=== PATIENT | female | born 1990 | race Caucasian/White ===

== ENCOUNTER 2020-10-19 05:36 | Inpatient (IN) | payer OTHER ==
[2020-10-19] MEDS ORDERED: Calcium Carbonate 500 MG Tab.Chew PO PRN (07:58)
[2020-10-19] MEDS ORDERED: fentaNYL 100 MCG/2 ML SDV IVPUSH PRN (07:58)
[2020-10-19] MEDS ORDERED: Sodium Chloride 0.9% 10 ML Syringe FLUSH PRN (07:58)
[2020-10-19] MEDS ORDERED: Ondansetron 4 MG/2 ML SDV IV PRN (07:58)
[2020-10-19] MEDS ORDERED: Lactated Ringers 1,000 ML IV SCH (08:00)
[2020-10-19] MEDS ORDERED: Clindamycin Phosphate 900 MG/6 ML SDV IV SCH (08:00)
[2020-10-19] MEDS ORDERED: Misoprostol 50 MCG (1/2 of 100 MCG) Tab VAG ONE (08:15)
[2020-10-19] MEDS: Clindamycin Phosphate 900 MG in Sodium Chloride 0.9% 100 ML IV SCH ×2 (08:41→16:29)
--- NOTE | 2020-10-19 10:11 | PCM.LDHP ---
L&D History of Present Illness - General Date of Service: 10/19/20 Admit Problem/Dx: Patient Status Order with Admit Dx/Problem 10/19/20 07:58 Patient Status [ADT] Routine Admission Diagnosis/Problem Admission Diagnosis/Problem Term Source of Information: Patient History Limitations: Reports: No Limitations - History of Present Illness Introduction:: 10/19/20 30 yo is here at 39 2/7 weeks for elective induction of labor. Reasons for choosing elective induction include history of hemorrhage, preeclampsia, and some extensive 2nd degree tearing last baby. Baby is also measuring in the 98% for weight. She has overall had an uncomplicated . She is rubella immune, A pos blood type, HIV/RPR/HepB & C all non reactive. She is GBS positive and allergic to amoxicillin so is receiving clindamycin. She has had some mild contractions over the last few days. Last baby was 8 lb 7 oz, vaginal . Timing/Duration: Reports: intermittent Severity: Mild Improves with: Reports: None Worsens with: Reports: None Associated Symptoms: Denies: vaginal bleeding, vaginal fluid - Related Data Allergies/Adverse Reactions: Allergies Allergy/AdvReac Type Severity Reaction Status Date / Time amoxicillin Allergy Rash Verified 08/24/20 16:24 benzoyl peroxide Allergy Facial Verified 08/24/20 16:24 Swelling pollen extracts Allergy Sneezing Verified 08/24/20 16:24 Sulfa (Sulfonamide Allergy Rash Verified 08/24/20 16:24 Antibiotics) Home Medications: Home Meds Aspirin 1 tab PO DAILY 08/24/20 [History] Cetirizine HCl [Zyrtec] 1 tab PO DAILY 08/24/20 [History] Docosahexaenoic Acid [DHA] 1 tab PO DAILY 08/24/20 [History] Pantoprazole Sodium [Protonix] 20 mg PO DAILY 08/24/20 [History] No122/Iron/Folic Acid [ Multi Tablet] 1 tab PO DAILY 08/24/20 [History] Past Medical History Respiratory History: Reports: Asthma Gastrointestinal History: Reports: Chronic Constipation 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 (Approximate): - Past Surgical History HEENT Surgical History: Reports: Naso-Sinus Surgery GI Surgical History: Reports: None Musculoskeletal Surgical History: Reports: Other (See Below) Other Musculoskeletal Surgeries/Procedures:: 2006 L acl REPAIR Social & Family History - Family History Family Medical History: No Pertinent Family History - Tobacco Use Tobacco Use Status *Q: Never Tobacco User Second Hand Smoke Exposure: No - Caffeine Use Caffeine Use: Reports: None - Recreational Drug Use Recreational Drug Use: No H&P Review of Systems - Review of Systems: Review Of Systems: See Below General: Reports: No Symptoms HEENT: Reports: No Symptoms Pulmonary: Reports: No Symptoms Cardiovascular: Reports: No Symptoms Gastrointestinal: Reports: No Symptoms Genitourinary: Reports: Discharge Musculoskeletal: Reports: No Symptoms Skin: Reports: No Symptoms Psychiatric: Reports: No Symptoms Neurological: Reports: No Symptoms Hematologic/Lymphatic: Reports: No Symptoms Immunologic: Reports: No Symptoms L&D Exam - Exam Exam: See Below - Vital Signs Vital Signs: Last Vital Signs Temp 37.0 C 10/19/20 08:35 Pulse 76 10/19/20 09:06 Resp BP 109/65 10/19/20 09:06 Pulse Ox 96 10/19/20 08:48 Weight: 99.79 kg - OB Specific Contraction Duration (sec): 60-90 Contraction Frequency (min): 2.5-3.5 Contraction Intensity: Mild Movement: Active Heart Tones: Present Heart Tones per Min: 130 Heart Rate (FHR) Variability: Moderate (6-25 bpm) Presentation: Vertex Estimated Weight: 8.5 lbs - Diamond Score Diamond Score Cervix Position: Midposition Diamond Score Consistency: Soft Diamond Score Effacement: 31-50% Diamond Score Dilation: 1-2 cm Diamond Score Infant's Station: -3 Diamond Score Total: 5 - Exam General: Alert, Oriented HEENT: PERRLA, Conjunctiva Clear, EOMI, Hearing Intact, Nares Patent, Normal Nasal Septum, Pupils Equal, Pupils Reactive Neck: Supple, Trachea Midline Lungs: Clear to Auscultation, Normal Respiratory Effort Cardiovascular: Regular Rate, Regular Rhythm GI/Abdominal Exam: Normal Bowel Sounds, Soft, Non-Tender, No Mass, Pelvis Stable Rectal Exam: Normal Exam Genitourinary: Normal external exam, Normal bimanual exam, Cervical dilitation. No: Vaginal bleeding Back Exam: Normal Inspection, Full Range of Motion Extremities: Normal Inspection, Normal Range of Motion, Non-Tender, No Pedal Edema, Normal Capillary Refill Skin: Warm, Dry, Intact Neurological: Cranial Nerves Intact, Reflexes Equal Bilateral Psychiatric: Alert, Normal Affect, Normal Mood - Patient Data Lab Results Last 24 hrs: Laboratory Results - last 24 hr 10/19/20 10/19/20 10/19/20 Range/Units 07:27 07:27 07:40 WBC 9.2 (4.5-11.0) K/uL RBC 3.98 (3.30-5.50) M/uL Hgb 12.6 (12.0-15.0) g/dL Hct 37.6 (36.0-48.0) % MCV 95 (80-98) fL MCH 32 H (27-31) pg MCHC 34 (32-36) % Plt Count 206 (150-400) K/uL Neut % (Auto) 73.4 H (36-66) % Lymph % (Auto) 16.7 L (24-44) % [place] % (Auto) 7.7 H (2-6) % Eos % (Auto) 1.8 L (2-4) % Baso % (Auto) 0.4 (0-1) % Urine Color Yellow (YELLOW) Urine Appearance Clear (CLEAR) Urine pH 6.5 (5.0-8.0) Ur Specific [place] 1.025 (1.008-1.030) Urine Protein Negative (NEGATIVE) mg/dL Urine Glucose (UA) Negative (NEGATIVE) mg/dL Urine Ketones Trace H (NEGATIVE) mg/dL Urine Occult Blood Trace-intact H (NEGATIVE) Urine Nitrite Negative (NEGATIVE) Urine Bilirubin Negative (NEGATIVE) Urine Urobilinogen 1.0 (0.2-1.0) EU/dL Ur Leukocyte Esterase Trace H (NEGATIVE) Urine RBC 0-5 (0-5) Urine WBC 0-5 (0-5) Ur Epithelial Cells Moderate Amorphous Sediment Not seen Urine Bacteria Rare Urine Mucus Moderate Urine Opiates Screen Negative (NEGATIVE) Ur Oxycodone Screen Negative (NEGATIVE) Urine Methadone Screen Negative (NEGATIVE) Ur Propoxyphene Screen Negative (NEGATIVE) Ur Barbiturates Screen Negative (NEGATIVE) Ur Tricyclics Screen Negative (NEGATIVE) Ur Phencyclidine Scrn Negative (NEGATIVE) Ur Amphetamine Screen Negative (NEGATIVE) U Methamphetamines Scrn Negative (NEGATIVE) Urine MDMA Screen Negative (NEGATIVE) U Benzodiazepines Scrn Negative (NEGATIVE) U Cocaine Metab Screen Negative (NEGATIVE) U Marijuana (THC) Screen Negative (NEGATIVE) Result Diagrams: 10/19/20 07:40 Matt Results Last 24 hrs: Microbiology 10/19/20 07:56 DAVID Preparation - Final Vagina 10/19/20 07:57 Wet Prep - Final Vagina - Problem List (1) Term SNOMED Code(s): 69853639 ICD Code: Z34.90 - ENCNTR FOR SUPRVSN OF NORMAL , UNSP, UNSP TRIMESTER Status: Acute Current Visit: Yes (2) History of hemorrhage SNOMED Code(s): 344291412 ICD Code: Z87.59 - PERSONAL HISTORY OF COMP OF PREG, CHLDBRTH AND THE PUERP Status: Acute Current Visit: Yes (3) Positive GBS test SNOMED Code(s): 797495412, 515659101 ICD Code: B95.1 - STREPTOCOCCUS, GROUP B, CAUSING DISEASES CLASSD ELSWHR Status: Acute Current Visit: Yes Problem List Initiated/Reviewed/Updated: Yes Orders Last 24hrs: Active Orders 24 hr Category Date Time Status Patient Status [ADT] Routine ADT 10/19/20 07:58 Active Communication Order [RC] ASDIRECTED Care 10/19/20 07:00 Active Communication Order [RC] ASDIRECTED Care 10/19/20 07:58 Active Notify Provider Vital Signs [RC] PRN Care 10/19/20 08:00 Active Notify Provider [RC] PRN Care 10/19/20 07:58 Active Up ad Bibi [RC] ASDIRECTED Care 10/19/20 07:58 Active VTE/DVT Education [RC] Click to Edit Care 10/19/20 08:01 Active Vital Signs [RC] PER UNIT ROUTINE Care 10/19/20 07:58 Active Regular Diet [DIET] Diet 10/19/20 Breakfast Active CORONAVIRUS COVID-19 RAPID [MOLEC] Routine Lab 10/19/20 07:56 Ordered Calcium Carbonate [Tums] Med 10/19/20 07:58 Active 1,000 mg PO Q2H PRN Clindamycin Phosphate [Cleocin] 900 mg Med 10/19/20 09:00 Active Sodium Chloride 0.9% [Normal Saline] 100 ml IV Q8H Lactated Ringers [Ringers, Lactated] 1,000 ml Med 10/19/20 08:00 Active IV ASDIRECTED Ondansetron [Zofran] Med 10/19/20 07:58 Active 4 mg IV Q4H PRN Sodium Chloride 0.9% [Saline Flush] Med 10/19/20 07:58 Active 10 ml FLUSH ASDIRECTED PRN fentaNYL [Sublimaze] Med 10/19/20 07:58 Active 50 mcg IVPUSH Q1H PRN DVT/VTE Prophylaxis Reflex [OM.PC] Routine Oth 10/19/20 07:58 Ordered Saline Lock Insert [OM.PC] Routine Oth 10/19/20 07:58 Ordered Resuscitation Status Routine Resus Stat 10/19/20 07:58 Ordered Medication Orders Calcium Carbonate/Glycine (Calcium Carbonate 500 Mg Tab.Chew) 1,000 mg PO Q2H PRN PRN Reason: Indigestion Fentanyl (Fentanyl 100 Mcg/2 Ml Sdv) 50 mcg IVPUSH Q1H PRN PRN Reason: Pain (moderate 4-6) Lactated Ringer's (Ringers, Lactated) 1,000 mls @ 125 mls/hr IV ASDIRECTED [facility] Last Admin: 10/19/20 08:42 Dose: 125 mls/hr Documented by: NAYE Clindamycin Phosphate 900 mg/ (Sodium Chloride) 106 mls @ 212 mls/hr IV Q8H [facility] Last Admin: 10/19/20 08:41 Dose: 212 mls/hr Documented by: NAYE Ondansetron HCl (Ondansetron 4 Mg/2 Ml Sdv) 4 mg IV Q4H PRN PRN Reason: Nausea/Vomiting Sodium Chloride (Sodium Chloride 0.9% 10 Ml Syringe) 10 ml FLUSH ASDIRECTED PRN PRN Reason: Keep Vein Open Assessment/Plan Comment:: 10/19/20 Assessment: at 39 2/7 here for induction of labor History of PPH History of vaginal GBS positive with amoxicillin allergy rubella immune A positive blood type SVE on admission /-3 Plan: 50 mcg cytotec placed vaginally Anticipate Monitor for change
--- NOTE | 2020-10-19 12:05 | PCM.PNLD ---
Labor Progress Note - VS & Meds Vital Signs: Last Vital Signs Temp 37.0 C 10/19/20 08:35 Pulse 76 10/19/20 09:06 Resp BP 109/65 10/19/20 09:06 Pulse Ox 96 10/19/20 08:48 Active Medications: Current Medications Calcium Carbonate/Glycine (Calcium Carbonate 500 Mg Tab.Chew) 1,000 mg PO Q2H PRN PRN Reason: Indigestion Fentanyl (Fentanyl 100 Mcg/2 Ml Sdv) 50 mcg IVPUSH Q1H PRN PRN Reason: Pain (moderate 4-6) Lactated Ringer's (Ringers, Lactated) 1,000 mls @ 125 mls/hr IV ASDIRECTED [facility] Last Admin: 10/19/20 08:42 Dose: 125 mls/hr Documented by: Clindamycin Phosphate 900 mg/ (Sodium Chloride) 106 mls @ 212 mls/hr IV Q8H [facility] Last Admin: 10/19/20 08:41 Dose: 212 mls/hr Documented by: Ondansetron HCl (Ondansetron 4 Mg/2 Ml Sdv) 4 mg IV Q4H PRN PRN Reason: Nausea/Vomiting Sodium Chloride (Sodium Chloride 0.9% 10 Ml Syringe) 10 ml FLUSH ASDIRECTED PRN PRN Reason: Keep Vein Open Discontinued Medications Misoprostol (Misoprostol 50 Mcg (1/2 Of 100 Mcg) Tab) 50 mcg VAG ONETIME ONE Stop: 10/19/20 08:16 Last Admin: 10/19/20 08:14 Dose: 50 mcg Documented by: - Uterine Contractions Uterine Monitoring Mode: External [place] Contraction Frequency (min): 2 Contraction Duration (sec): 50-70 Contraction Intensity: Moderate Uterine Resting Tone: Soft - Monitoring Monitor Mode: External Ultrasound Heart Rate (FHR) Baseline: 140 Heart Rate (FHR) Variability: Moderate (6-25 bpm) Accelerations: Present, 15x15 Decelerations: None Strip Review: Category I - Vaginal Exam Dilation (cm): 3 Effacement (Percent): 60 Station: -2 Cervical Position: Midposition Sterile Vaginal Exam Performed By: zulay templeton 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 Ctx are q2min and moderate to palpation, pt feeling some tightening but no pain. FHT is a category 1 with a baseline of 140bpm. SVE for 360/-2, mid position and soft. Discussed possibility of AROM when closer to 4-5cm. Plan is to recheck cervix in 1-2 hours.
[2020-10-19] MEDS ORDERED: Lactated Ringers 1,000 ML IV ONE (14:25)
--- NOTE | 2020-10-19 14:33 | PCM.PNLD ---
Labor Progress Note - VS & Meds Vital Signs: Last Vital Signs Temp 37.0 C 10/19/20 08:35 Pulse 71 10/19/20 13:04 Resp BP 111/75 10/19/20 13:04 Pulse Ox 99 10/19/20 13:04 Active Medications: Current Medications Calcium Carbonate/Glycine (Calcium Carbonate 500 Mg Tab.Chew) 1,000 mg PO Q2H PRN PRN Reason: Indigestion Fentanyl (Fentanyl 100 Mcg/2 Ml Sdv) 50 mcg IVPUSH Q1H PRN PRN Reason: Pain (moderate 4-6) Lactated Ringer's (Ringers, Lactated) 1,000 mls @ 125 mls/hr IV ASDIRECTED [facility] Last Admin: 10/19/20 08:42 Dose: 125 mls/hr Documented by: Clindamycin Phosphate 900 mg/ (Sodium Chloride) 106 mls @ 212 mls/hr IV Q8H [facility] Last Admin: 10/19/20 08:41 Dose: 212 mls/hr Documented by: Ondansetron HCl (Ondansetron 4 Mg/2 Ml Sdv) 4 mg IV Q4H PRN PRN Reason: Nausea/Vomiting Sodium Chloride (Sodium Chloride 0.9% 10 Ml Syringe) 10 ml FLUSH ASDIRECTED PRN PRN Reason: Keep Vein Open Discontinued Medications Misoprostol (Misoprostol 50 Mcg (1/2 Of 100 Mcg) Tab) 50 mcg VAG ONETIME ONE Stop: 10/19/20 08:16 Last Admin: 10/19/20 08:14 Dose: 50 mcg Documented by: - Uterine Contractions Uterine Monitoring Mode: External [place] Contraction Frequency (min): 1.5-2 Contraction Duration (sec): 40-70 Contraction Intensity: Mild Uterine Resting Tone: Soft - Monitoring Monitor Mode: External Ultrasound Heart Rate (FHR) Baseline: 140 Heart Rate (FHR) Variability: Moderate (6-25 bpm) Accelerations: Present, 15x15 Decelerations: None Strip Review: Category I - Vaginal Exam Dilation (cm): 4.5 Effacement (Percent): 70 Station: -2 Cervical Position: Midposition Sterile Vaginal Exam Performed By: yoanna templeton 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 Risks of AROM discussed with patient and she agrees to AROM. AROM done about 1430 for moderate amount of clear fluid. Category 1 tracing.
[2020-10-19] MEDS ORDERED: ePHEDrine 50 MG/ML SDV IVPUSH PRN (15:45)
[2020-10-19] MEDS ORDERED: ePHEDrine 50 MG/ML SDV ONE (15:45)
[2020-10-19] MEDS ORDERED: Ropivacaine 100 ML ONE (15:52)
[2020-10-19] MEDS ORDERED: Misoprostol 200 MCG Tab ONE (17:34)
[2020-10-19] MEDS ORDERED: Methylergonovine 0.2 MG/1 ML Amp ONE (17:34)
[2020-10-19] MEDS ORDERED: Carboprost Tromethamine 250 MCG/1 ML Amp ONE (17:34)
[2020-10-19] MEDS ORDERED: Witch Hazel Medicated Pads 100/Jar TOP PRN (17:48)
[2020-10-19] MEDS ORDERED: Benzocaine 20% Top Spray 56 GM Bottle TOP PRN (17:48)
[2020-10-19] MEDS ORDERED: Ibuprofen 200 MG Tab, 24 Tab Bulk Bottle PO PRN (17:48)
[2020-10-19] MEDS ORDERED: Acetaminophen 325 MG Tab, 50 Tab Bulk Bottle PO PRN (17:48)
[2020-10-19] MEDS ORDERED: Docusate Sodium 100 MG Cap PO PRN (17:48)
[2020-10-19] MEDS ORDERED: Lanolin 100% Cream 40 GM Tube TOP PRN (17:48)
--- NOTE | 2020-10-19 18:09 | PCM.DEL ---
L & D Note - General Info Date of Service: 10/19/20 Mother's Due Date: 10/24/20 - Delivery Note Labor: Augmented by ARM Cervical Ripening Method: Misoprostil Delivery Outcome: Livebirth Delivery Method: Spontaneous Vaginal Delivery-Single Infant Delivery Mode: Spontaneous Presentation: Right Occiput Anterior (JJ) Nuchal Cord: Present (loose, summersault) Anesthesia Type: Epidural Amniotic Fluid Description: Clear Episiotomy Type: None Laceration: 1st Degree, Labial (split repaired with 2 tack sutures) Suture size: 4-0 Placenta: Intact, Expressed Cord: 3 Vessels Estimated Blood Loss: 350 Resuscitation Needed: No Hercules: Stimulated Provider: Shabnam Michaels Score 1 min: 8 Score 5 min: 8 Post Delivery Events: Other (see below) (placenta delivery 36 minutes) Second Stage Interventions: Reports: Second Nurse Assessed Progress of Descent, Second Nurse Reviewed Contraction Pattern, Second Nurse Reviewed Heart Tones, Encouragement Given, Pushing Effectively, Pushing, McRobert's Position, Pushing, Pulls Own Legs Back Delivery Comments (Free Text/Narrative):: 10/19/20 30 yo G2 now P2 delivered viable female infant at 1701. She came today for elective induction of labor at 39 2/7 weeks due to history of PPH, preeclampsia, and baby measuring 98%. She was given cytotec 50 mcg vaginally this morning. She progressed nicely without further intervention. At about 1430 AROM was done for clear fluid, she then received an epidural. She pushed briefly and delivered a baby girl in JJ position. there was a loose body cord around the shoulders that she summersaulted through. She was immediately placed on mothers chest and with stimulation she cried. Delayed cord clamping done for 4 minutes. The placenta took 36 minutes to deliver and was delivered with fundal massage and cord traction. The placenta is noted to be bi-lobed and to have velamentous cord insertion. It appears intact and has a 3 vessel cord. Right labial split was tacked with 2 interrupted sutures. First degree perineal split not repaired. No cervical or vaginal lacerations. FF and bleeding light, EBL 350 ml. Apgars 8, 8. Baby remains on mothers chest and is . Stages of labor: 1: 8959-1998 2: 3681-1513 3: 9292-5933 Induction Criteria - Diamond Score Diamond Score Dilation: 1-2 cm Diamond Score Effacement: 40-50% Diamond Score 's Station: -3 Diamond Score Consistency: Soft Diamond Score Cervix Position: Midposition Diamond Score Total: 5 Diamond Score Presenting Part: Reports: Cephalic - Induction Gestational Age >/= 39 wks: Yes Estimated Pelvis: Reports: Adequate Reassuring Monitoring Strip: Yes Absence of Tachy Systole: Yes - Augmentation Estimated Pelvis: Reports: Adequate Weight Estimated:: Reports: AGA Reassuring Monitoring Strip: Yes Absence of Tachy Systole: Yes - General Info Date of Service: 10/19/20 Functional Status: Reports: Pain Controlled - Review of Systems General: Reports: No Symptoms HEENT: Reports: No Symptoms Pulmonary: Reports: No Symptoms Cardiovascular: Reports: No Symptoms Gastrointestinal: Reports: No Symptoms Genitourinary: Reports: No Symptoms Musculoskeletal: Reports: No Symptoms Skin: Reports: No Symptoms Neurological: Reports: No Symptoms Psychiatric: Reports: No Symptoms - Patient Data Vitals - Most Recent: Last Vital Signs Temp 37.0 C 10/19/20 08:35 Pulse 84 10/19/20 17:24 Resp BP 122/57 L 10/19/20 17:24 Pulse Ox 91 L 10/19/20 17:22 Weight - Most Recent: 99.79 kg I&O - Last 24 Hours: Intake & Output 10/19/20 10/19/20 10/19/20 06:59 14:59 22:59 Intake Total 100 1100 Balance 100 1100 Lab Results Last 24 Hours: Laboratory Results - last 24 hr 10/19/20 10/19/20 10/19/20 Range/Units 07:27 07:27 07:40 WBC 9.2 (4.5-11.0) K/uL RBC 3.98 (3.30-5.50) M/uL Hgb 12.6 (12.0-15.0) g/dL Hct 37.6 (36.0-48.0) % MCV 95 (80-98) fL MCH 32 H (27-31) pg MCHC 34 (32-36) % Plt Count 206 (150-400) K/uL Neut % (Auto) 73.4 H (36-66) % Lymph % (Auto) 16.7 L (24-44) % [place] % (Auto) 7.7 H (2-6) % Eos % (Auto) 1.8 L (2-4) % Baso % (Auto) 0.4 (0-1) % Urine Color Yellow (YELLOW) Urine Appearance Clear (CLEAR) Urine pH 6.5 (5.0-8.0) Ur Specific [place] 1.025 (1.008-1.030) Urine Protein Negative (NEGATIVE) mg/dL Urine Glucose (UA) Negative (NEGATIVE) mg/dL Urine Ketones Trace H (NEGATIVE) mg/dL Urine Occult Blood Trace-intact H (NEGATIVE) Urine Nitrite Negative (NEGATIVE) Urine Bilirubin Negative (NEGATIVE) Urine Urobilinogen 1.0 (0.2-1.0) EU/dL Ur Leukocyte Esterase Trace H (NEGATIVE) Urine RBC 0-5 (0-5) Urine WBC 0-5 (0-5) Ur Epithelial Cells Moderate Amorphous Sediment Not seen Urine Bacteria Rare Urine Mucus Moderate Urine Opiates Screen Negative (NEGATIVE) Ur Oxycodone Screen Negative (NEGATIVE) Urine Methadone Screen Negative (NEGATIVE) Ur Propoxyphene Screen Negative (NEGATIVE) Ur Barbiturates Screen Negative (NEGATIVE) Ur Tricyclics Screen Negative (NEGATIVE) Ur Phencyclidine Scrn Negative (NEGATIVE) Ur Amphetamine Screen Negative (NEGATIVE) U Methamphetamines Scrn Negative (NEGATIVE) Urine MDMA Screen Negative (NEGATIVE) U Benzodiazepines Scrn Negative (NEGATIVE) U Cocaine Metab Screen Negative (NEGATIVE) U Marijuana (THC) Screen Negative (NEGATIVE) SARS CoV-2 RNA Rapid JERRICA 10/19/20 Range/Units 07:56 WBC (4.5-11.0) K/uL RBC (3.30-5.50) M/uL Hgb (12.0-15.0) g/dL Hct (36.0-48.0) % MCV (80-98) fL MCH (27-31) pg MCHC (32-36) % Plt Count (150-400) K/uL Neut % (Auto) (36-66) % Lymph % (Auto) (24-44) % [place] % (Auto) (2-6) % Eos % (Auto) (2-4) % Baso % (Auto) (0-1) % Urine Color (YELLOW) Urine Appearance (CLEAR) Urine pH (5.0-8.0) Ur Specific [place] (1.008-1.030) Urine Protein (NEGATIVE) mg/dL Urine Glucose (UA) (NEGATIVE) mg/dL Urine Ketones (NEGATIVE) mg/dL Urine Occult Blood (NEGATIVE) Urine Nitrite (NEGATIVE) Urine Bilirubin (NEGATIVE) Urine Urobilinogen (0.2-1.0) EU/dL Ur Leukocyte Esterase (NEGATIVE) Urine RBC (0-5) Urine WBC (0-5) Ur Epithelial Cells Amorphous Sediment Urine Bacteria Urine Mucus Urine Opiates Screen (NEGATIVE) Ur Oxycodone Screen (NEGATIVE) Urine Methadone Screen (NEGATIVE) Ur Propoxyphene Screen (NEGATIVE) Ur Barbiturates Screen (NEGATIVE) Ur Tricyclics Screen (NEGATIVE) Ur Phencyclidine Scrn (NEGATIVE) Ur Amphetamine Screen (NEGATIVE) U Methamphetamines Scrn (NEGATIVE) Urine MDMA Screen (NEGATIVE) U Benzodiazepines Scrn (NEGATIVE) U Cocaine Metab Screen (NEGATIVE) U Marijuana (THC) Screen (NEGATIVE) SARS CoV-2 RNA Rapid JERRICA Negative Matt Results Last 24 Hours: Microbiology 10/19/20 07:56 DAVID Preparation - Final Vagina 10/19/20 07:57 Wet Prep - Final Vagina Med Orders - Current: Current Medications Acetaminophen (Acetaminophen 325 Mg Tab, 50 Tab Bulk Bottle) 0 mg PO Q4H PRN PRN Reason: Pain Benzocaine (Benzocaine 20% Top Channing 56 Gm Bottle) 0 gm TOP Q4H PRN PRN Reason: Perineal Comfort Measure Calcium Carbonate/Glycine (Calcium Carbonate 500 Mg Tab.Chew) 1,000 mg PO Q2H PRN PRN Reason: Indigestion Docusate Sodium (Docusate Sodium 100 Mg Cap) 100 mg PO BID PRN PRN Reason: Constipation Emollient Ointment (Lanolin 100% Cream 40 Gm Tube) 0 gm TOP ASDIRECTED PRN PRN Reason: Sore Nipples Ephedrine Sulfate (Ephedrine 50 Mg/Ml Sdv) 5 mg IVPUSH ASDIRECTED PRN PRN Reason: Hypotension Fentanyl (Fentanyl 100 Mcg/2 Ml Sdv) 50 mcg IVPUSH Q1H PRN PRN Reason: Pain (moderate 4-6) Lactated Ringer's (Ringers, Lactated) 1,000 mls @ 125 mls/hr IV ASDIRECTED EDUARDO Last Admin: 10/19/20 08:42 Dose: 125 mls/hr Documented by: Clindamycin Phosphate 900 mg/ (Sodium Chloride) 106 mls @ 212 mls/hr IV Q8H EDUARDO Last Admin: 10/19/20 16:29 Dose: 212 mls/hr Documented by: Oxytocin/Sodium Chloride (Pitocin In Ns 20 Units/1,000 Ml) 20 unit in 1,000 mls @ 999 mls/hr IV TITRATE EDUARDO; Protocol Ibuprofen (Ibuprofen 200 Mg Tab, 24 Tab Bulk Bottle) 600 mg PO Q6H PRN PRN Reason: Pain Ondansetron HCl (Ondansetron 4 Mg/2 Ml Sdv) 4 mg IV Q4H PRN PRN Reason: Nausea/Vomiting Sodium Chloride (Sodium Chloride 0.9% 10 Ml Syringe) 10 ml FLUSH ASDIRECTED PRN PRN Reason: Keep Vein Open Witch Linda (Witch Linda Medicated Pads 100/Jar) 1 pad TOP ASDIRECTED PRN PRN Reason: Hemorrhoids Discontinued Medications Carboprost Tromethamine (Carboprost Tromethamine 250 Mcg/1 Ml Amp) Confirm Administered Dose 250 mcg .ROUTE .STK-MED ONE Stop: 10/19/20 17:35 Ephedrine Sulfate (Ephedrine 50 Mg/Ml Sdv) Confirm Administered Dose 50 mg .ROUTE .STK-MED ONE Stop: 10/19/20 15:46 Last Admin: 10/19/20 16:29 Dose: Not Given Documented by: Lactated Ringer's (Ringers, Lactated) 1,000 mls @ 999 mls/min IV BOLUS ONE Stop: 10/19/20 14:26 Last Admin: 10/19/20 14:25 Dose: 999 mls/min Documented by: Ropivacaine (Naropin 0.2%) Confirm Administered Dose 100 mls @ as directed .ROUTE .STK-MED ONE Stop: 10/19/20 15:53 Oxytocin/Sodium Chloride (Pitocin In Ns 20 Units/1,000 Ml) Confirm Administered Dose 20 unit in 1,000 mls @ as directed .ROUTE .STK-MED ONE Stop: 10/19/20 16:57 Methylergonovine Maleate (Methylergonovine 0.2 Mg/1 Ml Amp) Confirm Administered Dose 0.2 mg .ROUTE .STK-MED ONE Stop: 10/19/20 17:35 Misoprostol (Misoprostol 50 Mcg (1/2 Of 100 Mcg) Tab) 50 mcg VAG ONETIME ONE Stop: 10/19/20 08:16 Last Admin: 10/19/20 08:14 Dose: 50 mcg Documented by: Misoprostol (Misoprostol 200 Mcg Tab) Confirm Administered Dose 200 mcg .ROUTE .STK-MED ONE Stop: 10/19/20 17:35 - Exam Urinary Catheter Total Time: 0Days 0Hours General: Alert, Oriented HEENT: Pupils Equal, Pupils Reactive, Mucous Membr. Moist/[place] Neck: Supple Lungs: Clear to Auscultation, Normal Respiratory Effort Cardiovascular: Regular Rate, Regular Rhythm GI/Abdominal Exam: Non-Tender, Pelvis Stable (Female) Exam: Normal External Exam, Normal Bimanual Exam, Cervical Dilatation, Enlarged Uterus, Vaginal Bleeding Back Exam: Normal Inspection, Full Range of Motion Extremities: Normal Inspection, No Pedal Edema Skin: Warm, Dry, Intact Neurological: No New Focal Deficit Psy/Mental Status: Alert, Normal Affect, Normal Mood - Problem List & Annotations (1) Term SNOMED Code(s): 54913748 Code(s): Z34.90 - ENCNTR FOR SUPRVSN OF NORMAL , UNSP, UNSP TRIMESTER Status: Acute Current Visit: Yes (2) History of hemorrhage SNOMED Code(s): 940077206 Code(s): Z87.59 - PERSONAL HISTORY OF COMP OF PREG, CHLDBRTH AND THE PUERP Status: Acute Current Visit: Yes (3) Positive GBS test SNOMED Code(s): 324180229, 940631497 Code(s): B95.1 - STREPTOCOCCUS, GROUP B, CAUSING DISEASES CLASSD [facility] Status: Acute Current Visit: Yes (4) Vaginal delivery SNOMED Code(s): 362478911 Code(s): O80 - ENCOUNTER FOR FULL-TERM UNCOMPLICATED DELIVERY Status: Acute Current Visit: Yes (5) started SNOMED Code(s): 470282227 Code(s): YZB2729 - Status: Acute Current Visit: Yes (6) Labial tear SNOMED Code(s): 114453402 Code(s): S31.41XA - LACERATION W/O FOREIGN BODY OF VAGINA AND VULVA, INIT ENCNTR Status: Acute Current Visit: Yes (7) First degree perineal laceration SNOMED Code(s): 02810044 Code(s): O70.0 - FIRST DEGREE PERINEAL LACERATION DURING DELIVERY Status: Acute Current Visit: Yes - Problem List Review Problem List Initiated/Reviewed/Updated: Yes - My Orders Last 24 Hours: My Active Orders 10/19/20 07:00 Communication Order [RC] ASDIRECTED 10/19/20 07:58 Patient Status [ADT] Routine Communication Order [RC] ASDIRECTED Notify Provider [RC] PRN Up ad Bibi [RC] ASDIRECTED Vital Signs [RC] PER UNIT ROUTINE Calcium Carbonate [Tums] 1,000 mg PO Q2H PRN Ondansetron [Zofran] 4 mg IV Q4H PRN Sodium Chloride 0.9% [Saline Flush] 10 ml FLUSH ASDIRECTED PRN fentaNYL [Sublimaze] 50 mcg IVPUSH Q1H PRN DVT/VTE Prophylaxis Reflex [OM.PC] Routine Saline Lock Insert [OM.PC] Routine Resuscitation Status Routine 10/19/20 08:00 Notify Provider Vital Signs [RC] PRN Regular Diet [DIET] Lactated Ringers [Ringers, Lactated] 1,000 ml IV ASDIRECTED 10/19/20 08:01 VTE/DVT Education [RC] Click to Edit 10/19/20 09:00 Clindamycin Phosphate [Cleocin] 900 mg Sodium Chloride 0.9% [Normal Saline] 100 ml IV Q8H 10/19/20 15:28 Epidural Catheter Management [OM.PC] Routine 10/19/20 15:29 PCEA Epidural [RC] ASDIRECTED 10/19/20 15:45 ePHEDrine [ePHEDrine sulfate] 5 mg IVPUSH ASDIRECTED PRN 10/19/20 17:00 Oxytocin/Normal Saline [Pitocin in NS 20 Units/1,000 ML] 20 unit in 1,000 ml IV TITRATE 10/19/20 17:48 Patient Status [ADT] Routine Vital Signs [RC] PFP Consult to Design Inserter [CONS] Routine Acetaminophen [Tylenol Bulk Bottle] See Dose Instructions PO Q4H PRN Benzocaine [Ogxk-[id number] 20% Channing] See Dose Instructions TOP Q4H PRN Docusate Sodium [Colace] 100 mg PO BID PRN Ibuprofen [Motrin Bulk Bottle] 600 mg PO Q6H PRN Lanolin [Lansinoh HPA] 0 gm TOP ASDIRECTED PRN witch Linda [Tucks] 1 pad TOP ASDIRECTED PRN Assess Lochia [WOMSER] Per Unit Routine Assess Uterine Involution [WOMSER] Per Unit Routine 10/19/20 17:49 Ice Therapy [OM.PC] Per Unit Routine Perineal Care [OM.PC] Per Unit Routine Sitz Bath [OM.PC] Per Unit Routine 10/20/20 05:11 CBC WITH AUTO DIFF [HEME] AM - Assessment Assessment:: 10/19/20 39 2/7 Vaginal delivery First degree perineal split, not repaired Right labial tear tacked together FF EBL 350 ml - Plan Plan:: 10/19/20 Assessment: at 39 2/7 here for induction of labor History of PPH History of vaginal GBS positive with amoxicillin allergy rubella immune A positive blood type SVE on admission /-3 Plan: 50 mcg cytotec placed vaginally Anticipate Monitor for change 10/19/20 Routine cares support Anticipate discharge at 48 hours for GBS
[2020-10-19] MEDS ORDERED: Fluconazole 150 MG Tab PO ONE (18:45)
--- NOTE | 2020-10-19 23:20 | ANES ---
DATE OF SERVICE: 10/19/2020 I was called this afternoon from the OB Department for a young lady upstairs in for a labor induction requesting a labor epidural. I was at the bedside at approximately 1525. Brief history and physical was done with the patient. The patient is healthy, is on aspirin daily. Other than that, has had healthy . Platelet count was noted to be 206. Risks and benefits of the labor epidural including spinal headache, subarachnoid block, or intravascular injection of local anesthetic were reviewed with the patient. The patient verbalizes the understanding, wishes to proceed with the labor epidural today. The patient was sat at the edge of the bed. Betadine prep x3 to the lumbar region was done. Sterile drape was placed. 1% lidocaine skin wheal and deep was done. A 17-gauge Tuohy needle was inserted at approximately the L3-4 position. Loss of resistance was easily achieved. Negative paresthesia, negative heme, negative CSF were noted. I then proceeded to pass the epidural catheter through the Touhy needle without difficulty. Touhy needle was taken out and catheter was pulled back and secured at approximately 15 cm. I then did a 5 mL test dose and laid the patient in supine position with head of bed slightly elevated and left uterine displacement. After several minutes after the test dose, the patient showed no signs of intravascular injection of local anesthetic or subarachnoid block. I then proceeded to give the patient 12 mL of 0.2% ropivacaine bolus via the epidural and started her on a 0.2% ropivacaine drip at 12 mL an hour via the epidural. The patient tolerated the epidural placement without difficulty. Please refer to the nurse's notes for vital signs. The patient was having already a little bit of relief prior to leaving. We will be available as needed for the patient. Quincy Anguiano CRNA /[id number]
--- NOTE | 2020-10-20 08:51 | PCM.PNPP ---
- General Info Date of Service: 10/20/20 Functional Status: Reports: Pain Controlled - Review of Systems General: Reports: No Symptoms HEENT: Reports: No Symptoms Pulmonary: Reports: No Symptoms Cardiovascular: Reports: No Symptoms Gastrointestinal: Reports: No Symptoms Genitourinary: Reports: No Symptoms Musculoskeletal: Reports: No Symptoms Skin: Reports: No Symptoms Neurological: Reports: No Symptoms Psychiatric: Reports: No Symptoms - General Info Date of Service: 10/20/20 - Patient Data Vital Signs - Most Recent: Last Vital Signs Temp 36.6 C 10/20/20 08:13 Pulse 71 10/20/20 08:13 Resp 18 10/20/20 08:13 BP 96/58 L 10/20/20 08:13 Pulse Ox 97 10/20/20 08:13 Weight - Most Recent: 99.79 kg I&O - Last 24 Hours: Intake & Output 10/19/20 10/20/20 10/20/20 22:59 06:59 14:59 Intake Total 3183 800 Output Total 150 Balance 3033 800 Lab Results - Last 24 Hours: Laboratory Results - last 24 hr 10/19/20 10/20/20 Range/Units 07:56 06:03 WBC 11.4 H (4.5-11.0) K/uL RBC 3.54 (3.30-5.50) M/uL Hgb 11.2 L (12.0-15.0) g/dL Hct 33.8 L (36.0-48.0) % MCV 96 (80-98) fL MCH 32 H (27-31) pg MCHC 33 (32-36) % Plt Count 184 (150-400) K/uL Neut % (Auto) 76.8 H (36-66) % Lymph % (Auto) 14.1 L (24-44) % [place] % (Auto) 7.6 H (2-6) % Eos % (Auto) 1.3 L (2-4) % Baso % (Auto) 0.2 (0-1) % SARS CoV-2 RNA Rapid JERRICA Negative Micro Results - Last 24 Hours: Microbiology 10/19/20 07:56 DAVID Preparation - Final Vagina 10/19/20 07:57 Wet Prep - Final Vagina Med Orders - Current: Current Medications Acetaminophen (Acetaminophen 325 Mg Tab, 50 Tab Bulk Bottle) 0 mg PO Q4H PRN PRN Reason: Pain Last Admin: 10/19/20 19:16 Dose: 650 mg Documented by: Benzocaine (Benzocaine 20% Top [place] 56 Gm Bottle) 0 gm TOP Q4H PRN PRN Reason: Perineal Comfort Measure Last Admin: 10/19/20 19:15 Dose: 1 spray Documented by: Calcium Carbonate/Glycine (Calcium Carbonate 500 Mg Tab.Chew) 1,000 mg PO Q2H PRN PRN Reason: Indigestion Docusate Sodium (Docusate Sodium 100 Mg Cap) 100 mg PO BID PRN PRN Reason: Constipation Emollient Ointment (Lanolin 100% Cream 40 Gm Tube) 0 gm TOP ASDIRECTED PRN PRN Reason: Sore Nipples Last Admin: 10/19/20 19:15 Dose: 1 applic Documented by: Ephedrine Sulfate (Ephedrine 50 Mg/Ml Sdv) 5 mg IVPUSH ASDIRECTED PRN PRN Reason: Hypotension Fentanyl (Fentanyl 100 Mcg/2 Ml Sdv) 50 mcg IVPUSH Q1H PRN PRN Reason: Pain (moderate 4-6) Lactated Ringer's (Ringers, Lactated) 1,000 mls @ 125 mls/hr IV ASDIRECTED EDUARDO Last Admin: 10/19/20 08:42 Dose: 125 mls/hr Documented by: Oxytocin/Sodium Chloride (Pitocin In Ns 20 Units/1,000 Ml) 20 unit in 1,000 mls @ 999 mls/hr IV TITRATE EDUARDO; Protocol Last Admin: 10/19/20 18:47 Dose: 999 mls/hr, 999 mls/hr Documented by: Ibuprofen (Ibuprofen 200 Mg Tab, 24 Tab Bulk Bottle) 600 mg PO Q6H PRN PRN Reason: Pain Last Admin: 10/19/20 19:16 Dose: 600 mg Documented by: Ondansetron HCl (Ondansetron 4 Mg/2 Ml Sdv) 4 mg IV Q4H PRN PRN Reason: Nausea/Vomiting Sodium Chloride (Sodium Chloride 0.9% 10 Ml Syringe) 10 ml FLUSH ASDIRECTED PRN PRN Reason: Keep Vein Open Witch Linda (Witch Linda Medicated Pads 100/Jar) 1 pad TOP ASDIRECTED PRN PRN Reason: Hemorrhoids Last Admin: 10/19/20 19:15 Dose: 1 pad Documented by: Discontinued Medications Carboprost Tromethamine (Carboprost Tromethamine 250 Mcg/1 Ml Amp) Confirm Administered Dose 250 mcg .ROUTE .STK-MED ONE Stop: 10/19/20 17:35 Last Admin: 10/19/20 19:17 Dose: Not Given Documented by: Ephedrine Sulfate (Ephedrine 50 Mg/Ml Sdv) Confirm Administered Dose 50 mg .ROUTE .STK-MED ONE Stop: 10/19/20 15:46 Last Admin: 10/19/20 16:29 Dose: Not Given Documented by: Fluconazole (Fluconazole 150 Mg Tab) 150 mg PO ONETIME ONE Stop: 10/19/20 18:46 Last Admin: 10/19/20 19:29 Dose: 150 mg Documented by: Clindamycin Phosphate 900 mg/ (Sodium Chloride) 106 mls @ 212 mls/hr IV Q8H EDUARDO Last Admin: 10/19/20 16:29 Dose: 212 mls/hr Documented by: Lactated Ringer's (Ringers, Lactated) 1,000 mls @ 999 mls/min IV BOLUS ONE Stop: 10/19/20 14:26 Last Admin: 10/19/20 14:25 Dose: 999 mls/min Documented by: Ropivacaine (Naropin 0.2%) Confirm Administered Dose 100 mls @ as directed .ROUTE .STK-MED ONE Stop: 10/19/20 15:53 Oxytocin/Sodium Chloride (Pitocin In Ns 20 Units/1,000 Ml) Confirm Administered Dose 20 unit in 1,000 mls @ as directed .ROUTE .STK-MED ONE Stop: 10/19/20 16:57 Last Admin: 10/19/20 18:44 Dose: Not Given Documented by: Methylergonovine Maleate (Methylergonovine 0.2 Mg/1 Ml Amp) Confirm Administered Dose 0.2 mg .ROUTE .STK-MED ONE Stop: 10/19/20 17:35 Last Admin: 10/19/20 19:17 Dose: Not Given Documented by: Misoprostol (Misoprostol 50 Mcg (1/2 Of 100 Mcg) Tab) 50 mcg VAG ONETIME ONE Stop: 10/19/20 08:16 Last Admin: 10/19/20 08:14 Dose: 50 mcg Documented by: Misoprostol (Misoprostol 200 Mcg Tab) Confirm Administered Dose 200 mcg .ROUTE .STK-MED ONE Stop: 10/19/20 17:35 Last Admin: 10/19/20 19:17 Dose: Not Given Documented by: - Interaction Infant Disposition, : [place] in Room with Family Interaction: Holding Infant Infant Feeding: Breastfed Infant; Nursed Well Support Person: Significant Other - Recovery Exam Fundal Tone: Firm Fundal Level: 1 Fingerbreadths Below Umbilicus Fundal Placement: Midline Lochia Amount: Small Lochia Color: Rubra/Red Perineum Description: Intact, Minimal Bruising/Swelling Episiotomy/Laceration: Approximated Bladder Status: Voiding - Exam General: Alert, Oriented, Cooperative HEENT: Pupils Equal, Pupils Reactive, EOMI, Mucous Membr. Moist/[place] Neck: Supple Lungs: Clear to Auscultation, Normal Respiratory Effort Cardiovascular: Regular Rate, Regular Rhythm GI/Abdominal Exam: Normal Bowel Sounds, Soft, Non-Tender, No Organomegaly, No Distention, No Abnormal Bruit, No Mass, Pelvis Stable Extremities: Normal Inspection, Normal Range of Motion, Non-Tender, No Pedal Edema, Normal Capillary Refill Skin: Warm, Dry, Intact Wound/Incisions: Healing Well Neurological: No New Focal Deficit Psy/Mental Status: Alert, Normal Affect, Normal Mood - Problem List & Annotations (1) started SNOMED Code(s): 475479333 Code(s): YFA3828 - Status: Acute Current Visit: Yes (2) First degree perineal laceration SNOMED Code(s): 78480902 Code(s): O70.0 - FIRST DEGREE PERINEAL LACERATION DURING DELIVERY Status: Acute Current Visit: Yes (3) Labial tear SNOMED Code(s): 568956159 Code(s): S31.41XA - LACERATION W/O FOREIGN BODY OF VAGINA AND VULVA, INIT ENCNTR Status: Acute Current Visit: Yes (4) Positive GBS test SNOMED Code(s): 404339206, 798379136 Code(s): B95.1 - STREPTOCOCCUS, GROUP B, CAUSING DISEASES CLASSD [facility] Status: Acute Current Visit: Yes (5) Vaginal delivery SNOMED Code(s): 713097263 Code(s): O80 - ENCOUNTER FOR FULL-TERM UNCOMPLICATED DELIVERY Status: Acute Current Visit: Yes - Problem List Review Problem List Initiated/Reviewed/Updated: Yes - Assessment Assessment:: 10/19/20 39 2/7 Vaginal delivery First degree perineal split, not repaired Right labial tear tacked together FF EBL 350 ml 10/20/20 day one Fundus firm and bleeding First degree perineal split, not repaired Right labial tear tacked together Both repairs approximated and minimal swelling well Plan discharge tomorrow - Plan Plan:: 10/19/20 Assessment: at 39 2/7 here for induction of labor History of PPH History of vaginal GBS positive with amoxicillin allergy rubella immune A positive blood type SVE on admission /3 Plan: 50 mcg cytotec placed vaginally Anticipate Monitor for change 10/19/20 Routine cares support Anticipate discharge at 48 hours for GBS 10/20/20 Continue routine cares Continue to support and encourage Anticipate discharge tomorrow
--- NOTE | 2020-10-21 04:29 | PCM.PNPP ---
- General Info Date of Service: 10/21/20 Functional Status: Reports: Pain Controlled - Review of Systems General: Reports: No Symptoms HEENT: Reports: No Symptoms Pulmonary: Reports: No Symptoms Cardiovascular: Reports: No Symptoms Gastrointestinal: Reports: No Symptoms Genitourinary: Reports: No Symptoms Musculoskeletal: Reports: No Symptoms Skin: Reports: No Symptoms Neurological: Reports: No Symptoms Psychiatric: Reports: No Symptoms - General Info Date of Service: 10/21/20 - Patient Data Vital Signs - Most Recent: Last Vital Signs Temp 36.7 C 10/20/20 23:40 Pulse 62 10/20/20 23:40 Resp 18 10/20/20 23:40 BP 102/56 L 10/20/20 23:40 Pulse Ox 98 10/20/20 23:40 Weight - Most Recent: 99.79 kg I&O - Last 24 Hours: Intake & Output 10/20/20 10/20/20 10/21/20 14:59 22:59 06:59 Intake Total 1600 Balance 1600 Lab Results - Last 24 Hours: Laboratory Results - last 24 hr 10/20/20 Range/Units 06:03 WBC 11.4 H (4.5-11.0) K/uL RBC 3.54 (3.30-5.50) M/uL Hgb 11.2 L (12.0-15.0) g/dL Hct 33.8 L (36.0-48.0) % MCV 96 (80-98) fL MCH 32 H (27-31) pg MCHC 33 (32-36) % Plt Count 184 (150-400) K/uL Neut % (Auto) 76.8 H (36-66) % Lymph % (Auto) 14.1 L (24-44) % Cass % (Auto) 7.6 H (2-6) % Eos % (Auto) 1.3 L (2-4) % Baso % (Auto) 0.2 (0-1) % Med Orders - Current: Current Medications Acetaminophen (Acetaminophen 325 Mg Tab, 50 Tab Bulk Bottle) 0 mg PO Q4H PRN PRN Reason: Pain Last Admin: 10/19/20 19:16 Dose: 650 mg Documented by: Benzocaine (Benzocaine 20% [place] 56 Gm Bottle) 0 gm TOP Q4H PRN PRN Reason: Perineal Comfort Measure Last Admin: 10/19/20 19:15 Dose: 1 spray Documented by: Calcium Carbonate/Glycine (Calcium Carbonate 500 Mg Tab.Chew) 1,000 mg PO Q2H PRN PRN Reason: Indigestion Docusate Sodium (Docusate Sodium 100 Mg Cap) 100 mg PO BID PRN PRN Reason: Constipation Emollient Ointment (Lanolin 100% Cream 40 Gm Tube) 0 gm TOP ASDIRECTED PRN PRN Reason: Sore Nipples Last Admin: 10/19/20 19:15 Dose: 1 applic Documented by: Ibuprofen (Ibuprofen 200 Mg Tab, 24 Tab Bulk Bottle) 600 mg PO Q6H PRN PRN Reason: Pain Last Admin: 10/19/20 19:16 Dose: 600 mg Documented by: Ondansetron HCl (Ondansetron 4 Mg/2 Ml Sdv) 4 mg IV Q4H PRN PRN Reason: Nausea/Vomiting Sodium Chloride (Sodium Chloride 0.9% 10 Ml Syringe) 10 ml FLUSH ASDIRECTED PRN PRN Reason: Keep Vein Open Witch Linda (Witch Linda Medicated Pads 100/Jar) 1 pad TOP ASDIRECTED PRN PRN Reason: Hemorrhoids Last Admin: 10/19/20 19:15 Dose: 1 pad Documented by: Discontinued Medications Carboprost Tromethamine (Carboprost Tromethamine 250 Mcg/1 Ml Amp) Confirm Administered Dose 250 mcg .ROUTE .STK-MED ONE Stop: 10/19/20 17:35 Last Admin: 10/19/20 19:17 Dose: Not Given Documented by: Ephedrine Sulfate (Ephedrine 50 Mg/Ml Sdv) 5 mg IVPUSH ASDIRECTED PRN PRN Reason: Hypotension Ephedrine Sulfate (Ephedrine 50 Mg/Ml Sdv) Confirm Administered Dose 50 mg .ROUTE .STK-MED ONE Stop: 10/19/20 15:46 Last Admin: 10/19/20 16:29 Dose: Not Given Documented by: Fentanyl (Fentanyl 100 Mcg/2 Ml Sdv) 50 mcg IVPUSH Q1H PRN PRN Reason: Pain (moderate 4-6) Fluconazole (Fluconazole 150 Mg Tab) 150 mg PO ONETIME ONE Stop: 10/19/20 18:46 Last Admin: 10/19/20 19:29 Dose: 150 mg Documented by: Lactated Ringer's (Ringers, Lactated) 1,000 mls @ 125 mls/hr IV ASDIRECTED EDUARDO Last Admin: 10/19/20 08:42 Dose: 125 mls/hr Documented by: Clindamycin Phosphate 900 mg/ (Sodium Chloride) 106 mls @ 212 mls/hr IV Q8H EDUARDO Last Admin: 10/19/20 16:29 Dose: 212 mls/hr Documented by: Lactated Ringer's (Ringers, Lactated) 1,000 mls @ 999 mls/min IV BOLUS ONE Stop: 10/19/20 14:26 Last Admin: 10/19/20 14:25 Dose: 999 mls/min Documented by: Ropivacaine (Naropin 0.2%) Confirm Administered Dose 100 mls @ as directed .ROUTE .STK-MED ONE Stop: 10/19/20 15:53 Oxytocin/Sodium Chloride (Pitocin In Ns 20 Units/1,000 Ml) 20 unit in 1,000 mls @ 999 mls/hr IV TITRATE EDUARDO; Protocol Last Admin: 10/19/20 18:47 Dose: 999 mls/hr, 999 mls/hr Documented by: Oxytocin/Sodium Chloride (Pitocin In Ns 20 Units/1,000 Ml) Confirm Administered Dose 20 unit in 1,000 mls @ as directed .ROUTE .STK-MED ONE Stop: 10/19/20 16:57 Last Admin: 10/19/20 18:44 Dose: Not Given Documented by: Methylergonovine Maleate (Methylergonovine 0.2 Mg/1 Ml Amp) Confirm Administered Dose 0.2 mg .ROUTE .STK-MED ONE Stop: 10/19/20 17:35 Last Admin: 10/19/20 19:17 Dose: Not Given Documented by: Misoprostol (Misoprostol 50 Mcg (1/2 Of 100 Mcg) Tab) 50 mcg VAG ONETIME ONE Stop: 10/19/20 08:16 Last Admin: 10/19/20 08:14 Dose: 50 mcg Documented by: Misoprostol (Misoprostol 200 Mcg Tab) Confirm Administered Dose 200 mcg .ROUTE .STK-MED ONE Stop: 10/19/20 17:35 Last Admin: 10/19/20 19:17 Dose: Not Given Documented by: - Infant Interaction Infant Disposition, : in Room with Family Interaction: Holding Infant Feeding: Breastfed Infant; Nursed Well Support Person: Significant Other - Recovery Exam Fundal Tone: Firm Fundal Level: At Umbilicus Fundal Placement: Midline Lochia Amount: Small Lochia Color: Rubra/Red Perineum Description: Intact, Minimal Bruising/Swelling Episiotomy/Laceration: Approximated Bladder Status: Voiding Urinary Elimination: Voided - Exam General: Alert, Oriented HEENT: Pupils Equal, Pupils Reactive, EOMI, Mucous Membr. Moist/[place] Neck: Supple Lungs: Clear to Auscultation, Normal Respiratory Effort Cardiovascular: Regular Rate, Regular Rhythm GI/Abdominal Exam: Normal Bowel Sounds, Soft, Non-Tender, No Organomegaly, No Distention, No Abnormal Bruit, No Mass, Pelvis Stable Extremities: Normal Inspection, Normal Range of Motion, Non-Tender, No Pedal Edema, Normal Capillary Refill Skin: Warm, Dry, Intact Wound/Incisions: Healing Well Neurological: No New Focal Deficit Psy/Mental Status: Alert, Normal Affect, Normal Mood - Problem List & Annotations (1) started SNOMED Code(s): 072956048 Code(s): [id number] - Status: Acute Current Visit: Yes (2) First degree perineal laceration SNOMED Code(s): 39561261 Code(s): O70.0 - FIRST DEGREE PERINEAL LACERATION DURING DELIVERY Status: A cute Current Visit: Yes (3) Labial tear SNOMED Code(s): 150858700 Code(s): S31.41XA - LACERATION W/O FOREIGN BODY OF VAGINA AND VULVA, INIT ENCNTR Status: Acute Current Visit: Yes (4) Positive GBS test SNOMED Code(s): 733429923, 486142242 Code(s): B95.1 - STREPTOCOCCUS, GROUP B, CAUSING DISEASES CLASSD ELSWHR Status: Acute Current Visit: Yes (5) Vaginal delivery SNOMED Code(s): 460444936 Code(s): O80 - ENCOUNTER FOR FULL-TERM UNCOMPLICATED DELIVERY Status: Acute Current Visit: Yes - Problem List Review Problem List Initiated/Reviewed/Updated: Yes - Assessment Assessment:: 10/19/20 39 2/7 Vaginal delivery First degree perineal split, not repaired Right labial tear tacked together FF EBL 350 ml 10/20/20 day one Fundus firm and bleeding decreasing First degree perineal split, not repaired Right labial tear tacked together Both repairs approximated and minimal swelling well Plan discharge tomorrow 10/21/20 day two Fundus firm and bleeding decreasing First degree perineal split, not repaired Right labial tear tacked together Both repairs approximated and minimal swelling well Plan discharge today - Plan Plan:: 10/19/20 Assessment: at 39 2/7 here for induction of labor History of PPH History of vaginal GBS positive with amoxicillin allergy rubella immune A positive blood type SVE on admission /-3 Plan: 50 mcg cytotec placed vaginally Anticipate Monitor for change 10/19/20 Routine cares support Anticipate discharge at 48 hours for GBS 10/20/20 Continue routine cares Continue to support and encourage Anticipate discharge tomorrow 10/21/20 Continue routine cares Continue to support and encourage Discharge home today To see Shabnam in six weeks for visit
== END 2020-10-21 11:43 | disposition home or self-care (01) | DRG 807 ==
LOC: JP.OB 07:11 → OBSVTOIN 17:01 → JP.MS 22:48
PROVIDERS: ADMIT Advanced Practice Midwife; ATTEND Advanced Practice Midwife
PROC: 10907ZC Drainage of Amniotic Fluid, Therapeutic from Products of Conception, Via Natural or Artificial Opening (ICD-10-PCS; principal; 2020-10-19)
PROC: 10E0XZZ Delivery of Products of Conception, External Approach (ICD-10-PCS; 2020-10-19)
PROC: 3E0R3BZ Introduction of Anesthetic Agent into Spinal Canal, Percutaneous Approach (ICD-10-PCS; 2020-10-19)
PROC: 00HU33Z Insertion of Infusion Device into Spinal Canal, Percutaneous Approach (ICD-10-PCS; 2020-10-19)
PROC: 0HQ9XZZ Repair Perineum Skin, External Approach (ICD-10-PCS; 2020-10-19)
DX: O99.824 Streptococcus B carrier state complicating childbirth (principal); Z37.0 Single live birth; Z3A.39 39 weeks gestation of pregnancy; Z20.822 Contact with and (suspected) exposure to COVID-19; O70.0 First degree perineal laceration during delivery; O69.81X0 Labor and delivery complicated by cord around neck, without compression, not applicable or unspecified
CPT/HCPCS: 36415; 51702; 80305-QW; 81001; 85025; 87210; 99211; A9270-GY; J2590; J2795; J3490; J7120; U0002

== ENCOUNTER 2021-04-04 12:06 | Emergency (ER) | payer OTHER ==
[2021-04-04] MEDS ORDERED: Ondansetron 4 MG/2 ML SDV IVPUSH ONE (12:48)
[2021-04-04] MEDS ORDERED: Sodium Chloride 0.9% 1,000 ML IV SCH (13:00)
== END 2021-04-04 14:41 | disposition home or self-care (01) ==
LOC: JP.ED 12:06
DX: B34.9 Viral infection, unspecified (principal); R11.2 Nausea with vomiting, unspecified; Z88.0 Allergy status to penicillin; Z88.8 Allergy status to other drugs, medicaments and biological substances; Z88.2 Allergy status to sulfonamides
CPT/HCPCS: 36415; 80053; 82550; 85025; 96374; 99284; J2405; J7030

== ENCOUNTER 2024-03-06 07:05 | Day surgery (SDC) | payer BC, OTHER ==
[2024-03-06] MEDS ORDERED: Midazolam 1 MG/ML 2 ML SDV ONE (07:08)
[2024-03-06] MEDS ORDERED: fentaNYL 50 MCG/ML SDV ONE (07:09)
[2024-03-06] MEDS ORDERED: Propofol 200 MG/20 ML SDV ONE (07:09)
[2024-03-06] MEDS: Lactated Ringers 1,000 ML IV SCH (07:41)
== END 2024-03-06 11:20 | disposition home or self-care (01) ==
LOC: JP.SDS 07:05
PROVIDERS: ATTEND Surgery
DX: R13.10 Dysphagia, unspecified (principal); J45.909 Unspecified asthma, uncomplicated; E78.5 Hyperlipidemia, unspecified
CPT/HCPCS: 00731; 43239; 43249; 81025; C1726; J2250; J2704; J3010; J7120; 88305